=== PATIENT | female | born 1995 | race Caucasian/White ===

== ENCOUNTER 2018-12-29 06:41 | Day surgery (SDC) | payer OTHER ==
[2018-12-29] VITALS (22 sets, daily range): BP systolic 44–131; BP diastolic 36–78; PULSE 78–112; RESP 14–24; Ht 149.9 cm; Wt 66.5 kg
[~2018-12-29] VITALS: Ht 149.9 cm; Wt 66.5 kg
[~2018-12-29 06:41] MED LIST: ALPR0.5T PO; CEPH-443 PO
[2018-12-29] MEDS ORDERED: PHENYLephrine (100 MCG/ML) 10ML SYG ONE (07:00)
[2018-12-29] MEDS ORDERED: DESFLURANE 15 MIN ONE (07:00)
--- NOTE | 2018-12-29 07:58 | PREOPHP ---
DATE OF ADMISSION: 12/29/2018 HISTORY OF PRESENT ILLNESS: This is a 23-year-old lady, 0. Her last normal menstrual period was few days prior to admission. She was admitted for removal of left lower labial cyst under gener al anesthesia. She refused to have it done in the clinic. She wanted to have general anesthesia. T he procedures were explained to her and she understood everything totally. The risks, benefits, and alternatives were discussed with her as well. PAST PERSONAL HISTORY: No history of TB, asthma. ALLERGIES: NO ALLERGIES. SOCIAL HISTORY: The patient does not smoke. She does not drink. MEDICATIONS: She does not take any drugs. GYNECOLOGIC HISTORY: She had menarche at the age of 10, every 28 days interval, 3 to 4 days duration, and moderate in amount. FAMILY HISTORY: Mother had cancer. Father had heart disease. Family history of diabetes. REVIEW OF SYSTEMS: CARDIOVASCULAR: No chest pains. RESPIRATORY: No cough. GASTROINTESTINAL: No diarrhea, no vomiting. GENITOURINARY: No dysuria. PHYSICAL EXAMINATION: GENERAL: Reveals a conscious, coherent lady and in no acute distress. VITAL SIGNS: Her blood pressure 120/80, pulse rate 80 per minute, respirations 16 per minute. BREASTS, HEART AND LUNGS: Within normal limits. ABDOMEN: Soft. No organomegaly. PELVIC: Revealed the cervix to be firm and a mass noted about 5 x 5 cm on the left lower labia was n oted, nontender to the touch. Pelvic exam revealed the cervix to be firm, uterus of normal size, and adnexa were negative for masses. RECTAL: Confirmed the pelvic findings. EXTREMITIES: No pedal edema. ADMITTING DIAGNOSIS: Left lower labial lesion. PLAN: The patient was planned to have the excision of the above lesion. Procedure was explained to the patient and she understood everything totally. The risks, benefits, and alternatives were discus sed with her as well. Dictated By: TAYLOR FRANCO MD NS/NTS Conf#: [id number] DID#: [id number] CC: TAYLOR FRANCO MD;*EndCC*
--- NOTE | 2018-12-29 09:29 | PREAC ---
Date/Time of Note Date/Time of Note DATE: 12/29/18 TIME: 09:28 Anesthesia Eval and Record Evaluation Time Pre-Procedure Interview DATE: 12/29/18 TIME: 09:28 Age 23 Sex female NPO: 8 hrs Preoperative diagnosis vulvar lesion Planned procedure excision of vulvar mass Past Medical History Past Medical History: Includes GI: Obesity Surgery & Anesthesia Issues No known issue Meds Anticoagulation: No Beta Jory within 24 hr: No Reason Beta Jory not given: Pt. not on B-Jory Discontinued Scripts Alprazolam* (Xanax*) 0.5 Mg Tab, 0.5 MG PO Q8H PRN for ANXIETY, #12 TAB Prov:FLYNN VALERO MD 12/03/15 Cephalexin* (Keflex*) 500 Mg Capsule, 500 MG PO TID for 7 Days, CAP Prov:FLYNN VALERO MD 12/03/15 Meds reviewed: Yes Allergies Coded Allergies: codeine (Verified Allergy, Mild, RASHES, 12/29/18) Allergies Reviewed: Yes Labs/Studies Labs Reviewed: Reviewed by anesthesiologist Blood Bank Test 12/28/18 12:57 Antibody Screen NEGATIVE Blood Type O POSITIVE test: N/A Pre-procedure Exam Last vitals Vital Signs Date Temp Pulse Resp B/P (MAP) Pulse Ox O2 O2 Flow FiO2 Time Delivery Rate 12/29/18 97.4 90 16 120/70 Room Air 08:09 (87) Airway: Adequate mouth opening, Adequate thyromental dist Mallampati: Mallampati II Teeth: Normal Lung: Normal Heart: Normal ASA Physical Status ASA physical status: 2 Emergency: None Planned Anesthetic General/MAC: ETT, LMA Pre-operative Attestations Prior to commencing anesthesia and surgery, the patient was re-evaluated, there was verification of: *The patient's identity *The results of appropriate recent lab work and preoperative vital signs *The above evaluation not changing prior to induction *Anesthetic plan, risk benefits, alternative and complications discussed with patient/family; questions answered; patient/family understands, accepts and wishes to proceed. JAJA MITCHELL Dec 29, 2018 09:29
[2018-12-29] MEDS ORDERED: ALBUTEROL 0.083% (NEB) 2.5 MG/3 ML AMP HHN PRN (09:30)
[2018-12-29] MEDS ORDERED: FENTAnyl 50 MCG/ML VIAL IV PRN ×2 (09:30)
[2018-12-29] MEDS ORDERED: ONDANSETRON 4 MG INJ IV PRN (09:30)
[2018-12-29] MEDS ORDERED: METOCLOPRAMIDE 10 MG INJ IV PRN (09:30)
[2018-12-29] MEDS ORDERED: HYDROmorphONE 1 MG/5 ML IV SYRINGE IV PRN ×3 (09:30)
[2018-12-29] MEDS ORDERED: MEPERIDINE 25 MG INJ IV PRN (09:30)
[2018-12-29] MEDS ORDERED: DIPHENHYDRAMINE 50 MG INJ IV PRN (09:30)
[2018-12-29] MEDS ORDERED: CEFAZOLIN 1 GM INJ ONE (09:37)
[2018-12-29] MEDS ORDERED: FENTAnyl 50 MCG/ML VIAL ONE (09:37)
[2018-12-29] MEDS ORDERED: LIDOCAINE 100 MG SYRINGE ONE (09:37)
[2018-12-29] MEDS ORDERED: PROPOFOL 20 ML ONE (09:37)
[2018-12-29] MEDS ORDERED: SUCCINYLCHOLINE CHLORIDE 100 MG/5 ML SYG IV ONE (09:37)
[2018-12-29] MEDS ORDERED: BACITRACIN/POLYMYXIN 28.35 GM OINT TOP ONE (09:51)
[2018-12-29] MEDS ORDERED: SUGAMMADEX SODIUM 200 MG/2 ML VIAL IV ONE (09:53)
--- NOTE | 2018-12-29 10:05 | SIPON ---
Date/Time of Note Date/Time of Note DATE: 12/29/18 TIME: 10:03 Operative Report Preoperative Diagnosis 5X5CM LEFT LOWER VULVAR LESION Postoperative Diagnosis POSSIBLE GENITAL WARTS Operation/Procedure Performed EXCISION OF 5X5CM LEFT VULVAR LESION Surgeon see signature line seismic survey assistant TESTER EQUIPMENT Anesthesia: general Estimated blood loss: minimal Transfusion Required none Specimen LEFT VULVAR LESION Grafts/Implants none Complications none TAYLOR FRANCO MD Dec 29, 2018 10:05
[2018-12-29] MEDS ORDERED: EPINEPHrine 0.1 MG/ML SYG ONE (10:14)
[2018-12-29] MEDS ORDERED: DEXAMETHASONE 4 MG/ML 1 ML INJ ONE (10:18)
[2018-12-29] MEDS ORDERED: ACETAMINOPHEN 325 MG TAB PO PRN (10:30)
[2018-12-29] MEDS ORDERED: DEXAMETHASONE 10 MG/ML 1 ML INJ IV ONE (10:30)
[2018-12-29] MEDS ORDERED: HYDROCODONE/APAP (5/325) TAB GTB PRN (13:00)
[2018-12-29] MEDS ORDERED: BACITRACIN 0.9 GM OINT TOP ONE (13:00)
--- NOTE | 2018-12-29 14:09 | PAC ---
Date/Time of Note Date/Time of Note DATE: 12/29/18 TIME: 14:09 Post-Anesthesia Notes Post-Anesthesia Note Last documented vital signs Vital Signs Date Temp Pulse Resp B/P (MAP) Pulse Ox O2 O2 Flow FiO2 Time Delivery Rate 12/29/18 16 118/71 Room Air 11:32 (87) 12/29/18 92 100 11:27 12/29/18 97.7 10:27 Activity: WNL Respiratory function: WNL Cardiovascular function: WNL Mental status: Baseline Pain reasonably controlled: Yes Hydration appropriate: Yes Nausea/Vomiting absent: Yes JAJA MITCHELL Dec 29, 2018 14:09
--- NOTE | 2018-12-29 17:33 | RADRPT ---
Vent Rate: 113 bpm RR Interval: 528 msec MI Interval: 149 msec QRS Duration: 79 msec QT Interval: 356 msec QTC Interval: 490 msec P-R-T Worth: 39 - 2 - 42 degrees Sinus tachycardia...rate> 99 Borderline prolonged QT interval...QTc >475mS Electronically Signed By: Margarito Bowers
--- NOTE | 2018-12-30 05:22 | OPR ---
DATE OF OPERATION: 12/29/2018 PREOPERATIVE DIAGNOSIS: Left vulvar lesion 5 x 5 cm. POSTOPERATIVE DIAGNOSES: Left vulvar lesion 5 x 5 cm, and possible left genital wart. SURGEON: Sandy Barrios MD. DEBRIDGING MACHINE OPERATOR: opthalmic tech. ANESTHESIA: General. ANESTHESIOLOGIST: . OPERATION PERFORMED: Excision of left vulvar lesion. OPERATIVE TECHNIQUE: Under general anesthesia, the patient was prepped and draped in the usual fashi on for vaginal surgery. Pelvic exam under anesthesia revealed the cervix to be firm, uterus of sandy l size, and adnexa were negative for masses. A 5 x 5 cm left lower vulvar lesion was noted with broa d pedicle and this was excised, and after excising the lesion, the base of the pedicle was cauterized . Bleeders were checked, and there was no bleeding noted. After cauterization, a Bacitracin ointmen t was put in at the site of the procedure and regular Band-Aid was put in. The patient tolerated the procedure well. Estimated blood loss was minimal. Vital signs were stable according to the anesthe siologist before and after the surgery. After the surgery, I left the surgical room. When the patie nt arrived in the recovery room, I was called by the nurse in charge of the patient. Then, according to her, the patient had some rashes on the lower abdomen. Her blood pressure was 44/30, and the O2 sat was a bit of 50 as well. Then, when I came, the anesthesiologist was there and then she was give n some Benadryl and the patient's blood pressure went up as she was given Benadryl and other medicati ons ordered by the anesthesiologist, and when I came, the vital signs were stable already. I went ou t and look for her family, but I did not see them at the waiting room. About an hour later, I spoke with the family and mentioned to them about the complication after the surgery. The patient was stab le, and because of that, was sent to short stay surgery. Dictated By: SANDY RUBY/NTS Conf#: [id number] DID#: [id number]
== END 2018-12-29 15:02 | disposition home or self-care (01) ==
LOC: SDS 06:41
PROVIDERS: ATTEND Obstetrics & Gynecology
DX: N84.3 Polyp of vulva (principal)
CPT/HCPCS: 11426; 84702; 84703; 86850; 86900; 86901; 88304; 93005; J0171; J0690; J1100; J1170; J1200; J2001; J2370; J2405; J3010; Z7512; Z7610